=== PATIENT | male | born 1990 | race Two or more races ===

== ENCOUNTER 2025-03-21 06:26 | Emergency (ER) | payer MEDICAID, OTHER ==
[~2025-03-21] VITALS: Ht 170.2 cm; Wt 84.4 kg
[2025-03-21 06:29] VITALS: BP 115/92; PULSE 73; RESP 16; TEMP 97.4; O2SAT 98
--- NOTE | 2025-03-21 07:09 | ED.PDOC ---
General HPI Comments A 35 YEAR OLD MALE PRESENTS TO THE ED WITH COMPLAINT OF URINARY COMPLAINTS. PT STATES HE WOKE UP THIS AM AT 0500 TO USE RESTROOM. PT STATES DURING END OF HIS STREAM, HE NOTED MILD BLOOD IN HIS URINE. PT STATES HE STARTED TO HAVE MILD DIZZINESS EPISODE WITH NO NOTED LOSS OF CONSCIOUSNESS EPISODE BUT WITH SOME MILD URINARY PAIN AND CAME TO THE ED FOR FURTHER EVALUATION. PT PATIENT DENIES FEVER, CHILLS, SHORTNESS OF BREATH, CHEST PAIN, ABDOMINAL PAIN, LOW BACK PAIN, NAUSEA, VOMITING, HEADACHE, OR OTHER COMPLAINTS. NO OTHER SYMPTOMS OR MODIFYING FACTORS AT THIS TIME. PATIENT IS ALERT, ORIENTED X 4, AND HAS STEADY GAIT. Chief Complaint: Urinary Time Seen by MD: 07:06 Reviewed notes: Nurses Notes, Medications, Allergies Allergies: Coded Allergies: Avocado (Verified Allergy, Unknown, 03/21/25) Information Source: Patient Mode of Arrival: Ambulatory Brought in by: SELF Severity: Mild Inability to void: None Timing: Hours Duration: Since onset, Hours Prehospital treatment: None Onset: Spontaneous Symptoms: Hematuria Penile discharge: None Modifying factors: None associated signs and symptoms: Hematuria Past Medical History PAST MEDICAL HISTORY: Denies Surgical History: Denies all surgeries Family History Family History: Reviewed,noncontributory to illness Social History Smoker: Non-Smoker Alcohol: Denies ETOH Use Drugs: Denies Drug Use Lives In: Home Constitutional: denies: chills, diaphoresis, fatigue, fever, malaise, sweats, weakness, others EENTM: denies: blurred vision, double vision, ear bleeding, ear discharge, ear drainage, ear pain, ear ringing, eye pain, eye redness, hearing loss, mouth pain, mouth swelling, nasal discharge, nose bleeding, nose congestion, nose pain, photophobia, tearing, throat pain, throat swelling, voice changes, others Respiratory: denies: cough, hemoptysis, orthopnea, SOB at rest, shortness of breath, SOB with excertion, stridor, wheezing, others Cardiovascular: denies: chest pain, dizzy spells, diaphoresis, Dyspnea on exertion, edema, irregular heart beat, left arm pain, lightheadedness, palpitations, PND, syncope, others Gastrointestinal: denies: abdomen distended, abdominal pain, blood streaked bowels, constipated, diarrhea, dysphagia, difficulty swallowing, hematemesis, melena, nausea, poor appetite, poor fluid intake, rectal bleeding, rectal pain, vomiting, others Genitourinary: reports: dysuria, hematuria; denies: burning, flank pain, freque ncy, incontinence, penile discharge, penile sore, testicle pain, testicle swelling, urgency, others Neurological: denies: dizziness, fainting, headache, left sided numbness, left sided weakness, numbness, paresthesia, pre-existing deficit, right sided numbness, right sided weakness, seizure, speech problems, tingling, tremors, weakness, others Musculoskeletal: denies: back pain, gout, joint pain, joint swelling, muscle pain, muscle stiffness, neck pain, others Integumetry: denies: bruises, change in color, change in hair/nails, dryness, laceration, lesions, lumps, rash, wounds, others Allergic/Immunocompromised: denies: Difficulty Healing, Frequent Infections, Hives, Itching, others Hematologic/Lymphatic: denies: anemia, blood clots, easy bleeding, easy bruising, swollen glands, others Endocrine: denies: excessive hunger, excessive sweating, excessive thirst, excessive urination, flushing, intolerance to cold, intolerance to heat, unexplained weight gain, unexplained weight loss, others Psychiatric: denies: anxiety, bipolar disorder, depression, hopeless, panic disorder, schizophrenia, sleepless, suicidal, others All Other Systems: Reviewed and Negative Physical Exam General Appearance: No Apparent Distress, Normal HEENT: Normal ENT Inspection, PERRL/EOMI, Pharynx Normal, TMs Normal Neck: Full Range of Motion, Non-Tender, Normal, Normal Inspection Respiratory: Chest Non-Tender, Lungs Clear, No Accessory Muscle Use, No Respiratory Distress, Normal Breath Sounds Cardiovascular: No Edema, No JVD, No Murmur, No Gallop, Normal Peripheral Pulses, Regular Rate/Rhythm Breast Exam: Deferred Gastrointestinal: No Organomegaly, Non Tender, No Pulsatile Mass, Normal Bowel Sounds, Soft Genitalia: Penis (NO PENILE DISCHARGE AND BLOOD SEEN. 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 Was a procedure done?: No Differential Diagnosis Kidney stone (Female): N/A Penile/Scrotal: UTI, Urolithiasis Urinary Problem (Male): Urethritis, UTI X-Ray, Labs, Meds, VS Vital Signs Date Time Temp Pulse Resp B/P (MAP) Pulse Ox O2 Delivery O2 Flow Rate FiO2 03/21/25 06:29 97.4 73 16 115/92 98 97.4 Lab Test 03/21/25 07:14 Range/Units Urine Color Light-yellow Yellow Urine Clarity Clear Clear Urine pH 5.5 5.0-9.0 Urine Specific [place] 1.028 1.001-1.035 Urine Protein Negative Negative Urine Ketones Negative Negative Urine Blood Negative Negative /uL Urine Nitrite Negative Negative Urine Bilirubin Negative Negative Urine Urobilinogen Normal Negative mg/dL Urine Leukocyte Esterase Negative Negative /uL Urine RBC 1 0 - 3 /hpf Urine Microscopic WBC 1 0-3 /HPF Urine Squamous Epithelial Cells None seen <5 /hpf Urine Bacteria None seen None Seen /hpf Urine Glucose Normal Normal mg/dL X-Ray, Labs, Meds, VS Comment COURSE: EXTERNAL MEDICAL RECORDS REVIEWED: [NONE] INDEPENDENT HISTORIANS: [NONE] SOCIAL DETERMINANTS OF HEALTH: [NONE] LABS ORDERED: UA REVIEWED AND INTERPRETED RESULTS: NORMAL, NO BLOOD IN THE URINE IMAGING ORDERED: NONE TREATMENTS ORDERED: PROCEDURES PERFORMED: NONE CRITICAL CARE TIME: NONE I HAVE DISCUSSED THE PATIENT WITH THE ATTENDING PHYSICIAN AND HE AGREES WITH THE PATIENT'S PLAN OF CARE AND DISPOSITION. BASED ON HISTORY OF PRESENT ILLNESS, AND PHYSICAL EXAM, PATIENT WILL BE DISCHARGED HOME. SHARED DECISION MAKING: DISCUSSED WITH PATIENT THAT THEIR WORKUP WAS NORMAL. PATIENT INSTRUCTED TO FOLLOW UP WITH PRIMARY CARE PROVIDER IN 1-2 DAYS FOR RE- EVALUATION OF SYMPTOMS. PATIENT VERBALIZES UNDERSTANDING TO RETURN TO ED FOR NEW OR WORSENING SYMPTOMS OR IF FOLLOW UP WITH PCP CANNOT BE OBTAINED. PATIENT FEELS COMFORTABLE GOING HOME AT THIS TIME. ALL QUESTIONS ADDRESSED AT TIME OF DISCHARGE. Time of 1ST Reevaluation: 08:00 Reevaluation 1ST: Improved Patient Education/Counseling: Diagnosis, Treatment, Need For Follow Up Family Education/Counseling: Diagnosis, Treatment, Need For Follow Up Medical Screening: No EMC Exist At This Time SEPSIS Sepsis Screen Date sepsis recognized/suspect: Mar 21, 2025 Time Sepsis recognized/suspect: 0636 Recent Procedure: No On Antibiotic Therapy: No Respiratory Rate >20: No Heart Rate >90: No Temp<36 C (96.8 F) or >38.3 C: No SBP <90 or MAP <65 mmHG: No New Acute Mental Status Change: No Is the patient on CPAP, BIPAP,: No Vital Signs Date Time Temp Pulse Resp B/P (MAP) Pulse Ox O2 Delivery O2 Flow Rate FiO2 03/21/25 06:29 97.4 73 16 115/92 98 97.4 Departure 1 Departure Time of Disposition: 08:10 Impression: Primary Impression: Hematuria Qualified Codes: R31.9 - Hematuria, unspecified Disposition: HOME / SELF CARE / HOMELESS Condition: Stable Additional Instructions: F/U PCP IN 2 DAYS RECHECK. IF CONDITION BECOME WORSE, RETURN TO ED [facility]. Discharged With: Self Critical Care Note Critical Care Time?: No Stability Stability form required: No Heart Score Heart Score: Heart Score Response (Comments) Value History N/A 0 EKG N/A 0 Age N/A 0 Risk Factors N/A 0 Troponin N/A 0 Total 0 I personally scribed for BRITTANY JORDAN ([email or web address]) on 03/21/25 at 07:09. Electronically submitted by Tanner Mckeon ([email or web address]). BRITTANY JORDAN Mar 21, 2025 07:09
[2025-03-21 07:38] LABS: Urine Protein, UAD Negative (Negative)
== END 2025-03-21 07:55 | disposition home or self-care (01) ==
LOC: ER 06:26
DX: R31.9 Hematuria, unspecified (principal); R42 Dizziness and giddiness
CPT/HCPCS: 81001